=== PATIENT | female | born 1980 | race Caucasian/White ===

== ENCOUNTER → 2019-04-13 11:00 | Outpatient (CLI) | payer OTHER, MEDICAID, SELFPAY ==
[2019-04-21 15:21] LABS: HPV APTIMA, High Risk Positive (Negative); HPV Reflexed? YES, CHARGE PATIENT
== END ==
PROVIDERS: Family Provider Family Medicine; PCP Family Medicine; Referring Provider Obstetrics & Gynecology; Visit Provider Obstetrics & Gynecology
DX: Z12.4 Encounter for screening for malignant neoplasm of cervix (principal)
CPT/HCPCS: 87624; 88175; G0145

== ENCOUNTER 2019-06-06 08:08 | Day surgery (SDC) | payer OTHER, MEDICAID, SELFPAY ==
[2019-06-02 17:18] LABS: Hematocrit 35.6 % (37-47); Hemoglobin 11.9 g/dL (12.0-15.0); Mean Corp Hgb Conc 33.4 g/dL (32-36); Mean Corpuscular Hgb 34.7 pg (27.0-32.0); Mean Corpuscular Volume 103.8 fL (81-99); Mean Platelet Vol. 9.7 fl (6.2-12.0); Platelet Count 284 K/mm3 (150-450); RBC Distribution Width CV 13.4 % (11.6-14.6); RBC Distribution Width SD 50.4 fl (35.1-43.9); Red Blood Count 3.43 M/mm3 (4.2-5.4); White Blood Count 8.4 K/mm3 (4.4-11.0)
[2019-06-02 17:26] LABS: Creatinine, Serum 0.83 mg/dL (0.55-1.02); EST Glomerular Filtration Rate 81 mL/min (>60); Est Glom Filt Rate - Afr Amer 98 mL/min (>60)
[2019-06-02 17:29] LABS: Prothrombin Time (Protime)PT. 12.8 SECONDS (11.7-14.9)
[2019-06-02 17:30] LABS: Partial Thromboplast Time 28.1 Seconds (24.1-36.2)
[2019-06-02 17:32] LABS: Internal QC Validated? YES +Cl - CLEAR BKGD; Pregnancy, Serum, hCG Quali. NEGATIVE Negative
--- NOTE | 2019-06-05 16:44 | PCM.HP.BLA ---
History and Physical Date of Admission: 06/06/19 Surgical History and Physical Bettina Kincaid, a 39 year old female 2 0 2 0 2, presents for LAVH/BSO on June 06, 2019 at 9:30. -- Heavy Menses; Severe Pelvic Pain -- Heavy bleeding with menses and pain with Ovulation. Reports approximately 4 months ago she noticed her bleeding becoming heavier with menses and with Ovulation, her pain kept getting worse with this last week being extreme. Bettina claims it started gradually and has been present 6 months. It occurs with menses.; It occurs midcycle. It is located in the lower abdomen. Bettina characterizes it to be upwards to the back. Bettina characterizes the quality searing. Bettina characterizes the quality stabbing. Bettina characterizes the quality heavy. Severity is moderate and not improving; Declines OCPs as had vasectomy; NSAIDs not helpful. Associated signs and symptoms are low back pain exacerbated. MEDICATIONS HISTORY: ALLERGIES: NKA Infections - Chicken pox Illnesses - none Accidents - no injuries of consequence Hospitalizations - Childbirth Review of Systems: GENERAL - Denies fever, or chills SKIN - Denies skin changes EYES - Denies visual changes EARS - Denies difficulty hearing NOSE - Denies nasal congestion or bleeding MOUTH - Denies sore throat or difficulty swallowing NECK - Denies pain or swelling RESPIRATORY - Denies shortness of breath or wheezing CARDIOVASCULAR - Denies palpitations or chest pain GASTROINTESTINAL - Denies nausea, vomiting, diarrhea, constipation GENITOURINARY - Denies dysuria, frequency of urination, incontinence of urine MUSCULOSKELETAL - Denies joint or muscle pain NEUROLOGICAL - Denies localized numbness or weakness PSYCHIATRIC - Denies depression or anxiety ENDOCRINE - Denies heat or cold intolerance, weight loss or gain HEMATO-IMMUNOLOGIC - Denies excesive bleeding with cuts SOCIAL HISTORY: Alcohol Use - denies drinking Smoking - used to smoke but quit Diet - moderate, balanced diet Lifestyle - moderate stress lifestyle and Exercise - regular Seat Belt Use - always Employer - [employer] Job Description - geospatial technician Illicit Drug Use - denies use of street drugs Sexual Activity - Residence - [facility] Place of - [place] Hours Worked - none Spouse-Sig Other Name - JJ Spouse-Sig Other Occupation - Self-Employed-- [employer] Children Name(s) - DAREN VINCENT Control - Vasectomy FAMILY HISTORY: Paternal history of Breast cancer. MENSTRUAL HISTORY: LMP Known?- YesAmount/Duration - 5 to 7 days, Regularity - Regular, Frequency - 30 days, LMP - 05/17/19, Age Onset Menarche - 11 PAST PREGNANCIES: Total Pregnancies - 4; Full Term Pregnancies - 2; Premature - 0; Abortions, Induced - 1; Abortions, Spontaneous - 1; Ectopics - 0; Multiple Births - 0; Living Children - 2 SURGICAL HISTORY: 1. D and C, 2004 ; - miscarriage 2. 04/19/2008 Foot sx ; Dr Sen 3. WISDOM TEETH PHYSICAL EXAM BP- 118/80 Sitting, Right arm, regular cuff Weight- 183.16626 lbs Height- 67 inch BMI:28.72 CONSTITUTIONAL - NAD, well nourished, and well developed SKIN - No rash, lesions, or ulcers HEENT - Normocephalic, PERRLA, EOMI NECK - no nodes, no nuchal rigidity and thyroid normal size and texture LYMPH NODES - Palpation of lymph nodes in neck and groins within normal limits LUNGS - CTA x2 without wheezes, crackles or rales CARDIAC - Regular rate and rhythm without rubs, murmurs, or gallops ABDOMEN - Without hepatosplenomegaly, distention, masses, rebound, or guarding; normal bowel sounds, no hernias EXTREMITIES - No edema or calf tenderness NEUROLOGICAL - Cranial nerves II-XII grossly intact PSYCHIATRIC - A and O to time, place, person, mood and affect External Genital Vagina - non-tender without lesions Urethra/Urethral Meatus - non-tender Bladder - non-tender Vagina - vaginal [place] are pink and moist without loss of rugae and no evidence of atropy Cervix - without cervical motion tenderness and has normal size and features without evident lesions Uterus - multiparous size 6 cm & wt 75-125 g and exquisitely tender Adnexa - no masses and tender in adnexa ASSESSMENT/PLAN: Menorrhagia, Pelvic Pain Uncertain etiology but likely endometriosis by history and exam. Pelvic u/s normal. Discussed options including OCPs, medications such as Lupron, endometrial ablation with salpingectomy, or proceeding with LAVH/BSO. Pt desirous of the hysterectomy. Discussed procedure in detail including RBAs including need for HRT and possibility of not helping pain and all questions answered.
[2019-06-06] VITALS (13 sets, daily range): BP systolic 89–132; BP diastolic 52–85; PULSE 45–71; RESP 14–16; TEMP 36.1–36.9; O2SAT 93–100; BMI 28.5
[2019-06-06 08:34] LABS: Internal QC Validated? YES +Cl - CLEAR BKGD
[2019-06-06] MEDS: Lactated Ringers 1,000 ML 100 ML IV ×2 (08:35→12:25)
[2019-06-06 08:37] LABS: Pregnancy, Urine Negative Negative
--- NOTE | 2019-06-06 10:10 | HYST_PTH ---
PATIENT: JORGE LUIS POLANCO LOC: [facility] [place] U#:[id number] AGE/SX: 39/F ROOM: RE06/06/[address]: Dr. Chris Jimenez MD : [id number] BED: DIS: 06/07/2019 SPEC #: [id number] RECD: 06/06/19 13:44 STATUS: LUIS MAICO #: [id number] ULICES: 06/06/19 10:[address]: Chris Jimenez DEPT: SURGICAL PATHOLOGY RECD BY: Kingsley Aranda ENTERED: 06/06/19 13:51 SP TYPE: HYSTERECT OTHR DR: MARNIE Lopez Tissues: Uterus, NOS Procedures: Surgery Specimen Level V HEADER OPERATION: Hysterectomy, LAVH, BSO PRE-OP DIAGNOSIS: Menorrhagia, pelvic pain TISSUE SUBMITTED: Uterus and bilateral fallopian tubes and ovaries MICROSCOPIC DIAGNOSIS Uterus and bilateral fallopian tubes and ovaries, vaginal hysterectomy and bilateral salpingo-oophorectomy: Cervix - mild chronic cystic cervicitis. Endometrium - secretory endometrium. Myometrium - focal adenomyosis. Bilateral fallopian tubes - no pathologic diagnosis. Bilateral ovaries - physiologic follicular and corpus luteal cysts. Right paratubal cyst. SJ:conor 06/07/19 MICROSCOPIC DESCRIPTION Slides are reviewed. GROSS DESCRIPTION Received in fixative is one container labeled with the patient's name and designated uterus. The specimen consists of a uterus with attached cervix and attached left fallopian tube and ovary and detached right fallopian tube and ovary. The uterus with cervix measures 10 x 5 x 4.5 cm and weighs 109 gm. The ectocervix is unremarkable. The cervical os is [place] in contour. The endocervical canal measures 4 cm in length and is grossly unremarkable. The triangular endometrial cavity measures 4.5 x 3 cm. The velvety, pink-clark endometrium measures up to 0.2 cm in thickness. The myometrium measures 2 cm in average thickness and is grossly consistent with adenomyosis. The smooth, glistening, cystic right ovary measures 4.5 x 2.5 x 2 cm. Sections reveal multiple cysts ranging in size from 0.5 to 2 cm and containing clear to bloody fluid. The right fallopian tube measures 6 cm in length and 0.5 cm in average diameter. A normal fimbriated end is present. The fimbriated end contains a smooth, glistening cyst measuring 1 cm in greatest dimension and containing clear fluid. The left ovary is similar in appearance to the right ovary and measures 4 x 2.2 x 1.5 cm. Serial sections likewise reveal multiple cysts ranging in size from 0.5 to 1 cm and containing clear to bloody fluid. The adjacent left fallopian tube measures 6.5 cm in length and 0.5 cm in average diameter. No tubo-ovarian adhesions are identified in either fallopian tube or ovarian complex. Parking Regulation Enforcement Officer sections are submitted in ten cassettes as follows: 1 - anterior cervix, 2 - posterior cervix, 3 & 4 - anterior uterine wall, 5 & 6 - posterior uterine wall, 7 - right ovary, 8 - right fallopian tube and paratubal cyst, 9 - left ovary, 10 - left fallopian tube. / AM:conor 06/06/19 TC:5 CPT: 71299
--- NOTE | 2019-06-06 10:17 | OP.PCM_ITS ---
Report of Operation Date of Procedure: 06/06/19 Pre-Operative Diagnosis: Pelvic Pain and Menorrhagia Post-Operative Diagnosis: Pelvic Pain and Menorrhagia Surgery/Procedure Performed:: Laparoscopic Assisted Vaginal Hysterectomy and Bilateral Salpingo-Oophorectomy Description of Surgical Findings:: 10 cm uterus with normal appearing fallopian tubes and ovaries asian studies program chair: Jacqueline Newsome Type of Anesthesia:: General - Endotracheal Anesthesiologist: Rome Mendoza Specimen's removed: Uterus and bilateral fallopian tubes and ovaries Drains: Higuera to straight drain Estimated Blood Loss (mL): 150 cc Fluids Replaced: Crystalloid Description of Procedure: Surgeon: Chris Jimenez MD, FACOG Indications: This is a 39-year-old who is been having problems with menorrhagia and pelvic pain. Conservative measures have not been helpful. Given this the patient desires that we proceed the above procedure. She has been counseled regarding the risk and indications of this procedure including the possibility of bleeding, infection, and injury to surrounding structures such as bowel bladder. All questions were answered. Procedure: Patient was taken to the operating room where after induction of general anesthesia she was placed in the dorsal lithotomy position and prepped and draped in the usual sterile fashion. A Higuera catheter was placed. Anterior cervix was grasped with a tenaculum and anterior cervix circumscribed with ca utery on a setting of 35 W coagulation. Anterior vaginal mucosa was undermined and a 4 x 4 raytec sponge was placed to identify the peritoneal reflection of the bladder intraperitoneally. Conn cannula was placed and attention was turned towards the laparoscopic portion of the procedure. Approximately 20 cc of half percent ropivacaine was injected subumbilically, suprapubically, and midway between. A 5 mm bladeless trocar was introduced subumbilically and intraperitoneal placement confirmed. CO2 insufflation was completed and, under direct visualization, a 5 mm bladeless trocar was introd uced suprapubically. A 5 mm bladeless trocar was introduced midway between these 2 ports. Enseal was used to cauterize the infundibulopelvic ligaments to the level of the round ligament and the Raytec placed in the vagina was visualized. Scissors was used to open the peritoneum and under direct visualization a narrow [place] was placed vaginally; CO2 gas was stopped and attention turned toward the vaginal hysterectomy portion of the procedure. The posterior aspect of the cervix was circumscribed with a knife and posterior peritoneum easily entered. Progressive bites were taken on either side of the uterine cervix and each pedicle ligated with 0 Vicryl suture. Superior pedicles were ligated ?2 with 0 Vicryl suture and sidewall pedicles were examined and oversewn where necessary with [id number] 0 Vicryl suture to achieve hemostasis. Posterior vaginal cuff was oversewn with running locked 0 Vicryl suture. Hemostasis was noted and peritoneum was closed in a pursestring fashion incorporating superior pedicles into the stitch. Vaginal cuff was then closed front to back with interrupted [id number] 0 Vicryl suture. Hemostasis was noted. Attention was turned toward the laparoscopic portion of the procedure. CO2 insufflation was completed and pedicles were examined and noted to be hemostatic. Some oozing was noted along the pedicles and Tracy was placed to help with hemostasis. Laparoscopic instruments with as much CO2 gas as possible was removed and skin incisions were closed with interrupted 4-0 Monocryl suture. Steri-Strips were placed across the incisions. Patient tolerated the procedure well was taken to recovery room in satisfactory condition; sponge instrument and needle counts were all reportedly correct. Estimated blood loss for the case was 150 cc. Cefotan 2 g IV was given prior to beginning the operative procedure. There were no apparent complications of the surgery. Specimen to pathology was uterus and bilateral fallopian tubes and ovaries. Grafts/Implants Used: None - Complications None - Admit VTE Documentation VTE Present on Admission: Yes VTE Mechan Device Prophylaxis: SCD's VTE Pharm Prophylaxis ordered?: Yes
--- NOTE | 2019-06-06 10:22 | DCINST_ITS ---
Discharge Diet: No Restrictions Discharge Activity: Return to Normal Activity, May Not Drive - while taking narcotic pain medications., May Shower, May Take a Tub Bath May resume sexual activity in: 6-8 weeks Call your doctor if your incision/area has: Continuous Slow Oozing, Sudden Inc reased Bleeding, Increased Pain/ Swelling, Increased Redness, Foul Smelling Discharge Call your doctor if you observe: Fever of 101 or Higher, Inability to urinate, Inability to have a bowel movement, Using more than one pad per hour Allergies/Adverse Reactions: Allergies No Known Allergies Allergy (Verified 06/06/19 08:16) Medications to take at Discharge Docusate Sodium [Colace] 100 mg PO BID PRN PRN #60 cap 06/06/19 Estradiol 2 mg PO DAILY #100 tab 06/06/19 Oxycodone [Oxyir] 5 mg PO Q6H PRN PRN 7 Days #20 tab 06/06/19 The following prescriptions were given: Docusate Sodium [Colace] 100 mg PO BID PRN PRN #60 cap PRN Reason: Constipation Prescription Printed Estradiol 2 mg PO DAILY #100 tab Prescription Printed Oxycodone [Oxyir] 5 mg PO Q6H PRN PRN 7 Days #20 tab PRN Reason: Pain Score 6-10/10 Prescription Printed Primary Care Physician: Rosanne Payne PA [Primary Care Provider] - Test Results: Test results from this visit will be discussed in further detail at your follow- up appointment, if applicable. Please Follow Up With: Chris Jimenez MD When: 2-3 weeks
[2019-06-06] MEDS: Ropivacaine 0.5% 30 ML Vial (11:30)
[2019-06-06] MEDS: HYDROmorphone 0.5 MG/0.5 ML SYRINGE IV ×3 (13:47→22:28)
[2019-06-06] MEDS: Dextrose 5%-Lactated Ringers 1,000 ML 150 ML IV ×2 (13:47→20:32)
[2019-06-06] MEDS: oxyCODONE 5 MG Tablet PO ×2 (15:55→20:33)
[2019-06-06] MEDS: Ketorolac 30 MG/ML Syringe IV ×2 (17:28→23:58)
[2019-06-06] MEDS: Enoxaparin 30 MG/0.3 ML Syringe SC (17:32)
[2019-06-06] MEDS: Docusate Sodium 100 MG Capsule PO (23:58)
[2019-06-07] MEDS: oxyCODONE 5 MG Tablet PO ×3 (01:17→13:22)
[2019-06-07 04:30] VITALS: BP 95/40; PULSE 64; RESP 18; TEMP 36.9; O2SAT 99
[2019-06-07] MEDS: HYDROmorphone 0.5 MG/0.5 ML SYRINGE IV (04:38)
[2019-06-07] MEDS: 0.9% Saline Lock 10 ML Syringe IV (04:50)
[2019-06-07 05:49] LABS: Hematocrit 28.5 % (37-47); Hemoglobin 9.8 g/dL (12.0-15.0); Mean Corp Hgb Conc 34.4 g/dL (32-36); Mean Corpuscular Hgb 35.3 pg (27.0-32.0); Mean Corpuscular Volume 102.5 fL (81-99); Mean Platelet Vol. 9.9 fl (6.2-12.0); Platelet Count 233 K/mm3 (150-450); RBC Distribution Width CV 13.2 % (11.6-14.6); RBC Distribution Width SD 49.8 fl (35.1-43.9); Red Blood Count 2.78 M/mm3 (4.2-5.4); White Blood Count 16.6 K/mm3 (4.4-11.0)
[2019-06-07] MEDS: Ketorolac 10 MG Tablet PO ×2 (05:54→13:22)
[2019-06-07 06:22] LABS: Creatinine, Serum 0.92 mg/dL (0.55-1.02); EST Glomerular Filtration Rate 72 mL/min (>60); Est Glom Filt Rate - Afr Amer 87 mL/min (>60); Estimated Creatinine Clearance 79.05 ml/min
--- NOTE | 2019-06-07 08:17 | PN.OBGYN_ITS ---
Subjective: Patient without complaints. Tolerating diet well. Minimal vaginal bleeding. Positive flatus. Able to void on own. Ready to go home. - Physical Exam Vitals/I&O's: Vital Signs Temp Pulse Resp BP Pulse Ox 98.4 F 64 18 95/40 L 99 06/07/19 04:30 06/07/19 04:30 06/07/19 04:30 06/07/19 04:30 06/07/19 04:30 Oxygen Delivery Method Room Air Weight: 182 lb 8.684 oz Body Mass Index (BMI) 28.5 Intake and Output for Last 24 Hours 06/05/19 06/06/19 06/07/19 23:59 23:59 23:59 Intake Total 2689.42 / 3989.42 1827.5 / 1827.5 Output Total 200 / 1450 1825 / 1825 Balance 2489.42 / 2539.42 2.5 / 2.5 Comment: Wounds clean, dry, intact. Urine output okay. Hgb and creatinine ok. Laboratory Results 06/06/19 08:27: Urine Test Negative 06/07/19 05:36: WBC 16.6 H, RBC 2.78 L, Hgb 9.8 L, Hct 28.5 L, MCV 102.5 H, MCH 35.3 H, MCHC 34.4, RDW Std Deviation 49.8 H, RDW Coeff of Isaias 13.2, Plt Count 233, MPV 9.9 06/07/19 05:36: Creatinine 0.92, Estim Creat Clear Calc 79.05, Est GFR (MDRD) Af Amer 87, Est GFR (MDRD) Non-Af 72 Current Medications Acetaminophen (Tylenol) 1,000 mg PO Q8H PRN PRN PRN Reason: Pain Score 1-3/10 or Fever Docusate Sodium (Colace) 100 mg PO BID PRN PRN PRN Reason: Constipation Last Admin: 06/06/19 23:58 Dose: 100 mg Documented by: Estrogens Conjugated (Premarin) 1.25 mg PO DAILYCM SANDRA Hydromorphone HCl (Dilaudid Inj) 0.5 mg IV Q3H PRN PRN PRN Reason: Pain Score 4-10/10 Last Admin: 06/07/19 04:38 Dose: 0.5 mg Documented by: Sodium Chloride () 250 mls @ 15 mls/hr IV .[id number] PRN PRN Reason: Saline Flush Last Infusion: 06/07/19 05:54 Dose: 0 mls/hr Documented by: Ketorolac Tromethamine (Toradol) 10 mg PO Q6H [facility] Stop: 06/11/19 06:01 Last Admin: 06/07/19 05:54 Dose: 10 mg Documented by: Ondansetron HCl (Zofran) 4 mg IV Q4H PRN PRN PRN Reason: NAUSEA Oxycodone HCl (Oxyir) 5 mg PO Q4H PRN PRN PRN Reason: Pain Score 4-1010 Last Admin: 06/07/19 01:17 Dose: 5 mg Documented by: Simethicone (Mylicon) 80 mg PO [facility] Last Admin: 06/06/19 22:18 Dose: 80 mg Documented by: Sodium Chloride () 10 - 40 ml IV UD PRN PRN Reason: SALINE FLUSH Last Admin: 06/07/19 04:50 Dose: 10 ml Documented by: Medical Necessity - Tobacco Use Smoking Status: Former smoker Tobacco Use: Non-smoker Assessment/Plan Doing well postoperative day #1 status post laparoscopic assisted vaginal hysterectomy and bilateral salpingo-oophorectomy. Will release to home with routine instructions.
[2019-06-07 08:19] VITALS: BP 107/68; PULSE 68; RESP 16; TEMP 36.8; O2SAT 96
[2019-06-07] MEDS: Estrogens,Conj. 1.25 MG Tablet PO (09:26)
[2019-06-07 10:30] VITALS: BP 108/69; PULSE 99; RESP 16; TEMP 37.1; O2SAT 100
[2019-06-07 11:42] VITALS: O2SAT 98
== END 2019-06-07 13:32 | disposition home or self-care (01) ==
LOC: SDC 08:09 → AC 08:09 → MS3 06-07 12:49
PROVIDERS: Anesthesiology; Family Provider Physician Assistant; PCP Physician Assistant; Referring Provider Obstetrics & Gynecology; Visit Provider Obstetrics & Gynecology
PROC: 0UT9FZZ Resection of Uterus, Via Natural or Artificial Opening With Percutaneous Endoscopic Assistance (ICD-10-PCS; CPT 58552; principal; 2019-06-06 09:45)
DX: N88.8 Other specified noninflammatory disorders of cervix uteri (principal); N80.0 Endometriosis of uterus; N83.12 Corpus luteum cyst of left ovary; N83.11 Corpus luteum cyst of right ovary; N83.8 Other noninflammatory disorders of ovary, fallopian tube and broad ligament; Z86.2 Personal history of diseases of the blood and blood-forming organs and certain disorders involving the immune mechanism; Z87.891 Personal history of nicotine dependence
CPT/HCPCS: 00940; 58552; 36415; 81025; 82565; 84703; 85027; 85610; 85730; 86850; 86900; 86901; 88307; 99251; J7050; J7120; A4216; C1760; G0463; J2405